=== PATIENT | female | born 1970 | race Caucasian/White ===

== ENCOUNTER 2016-07-27 07:50 | Emergency (ER) | payer OTHER, SELFPAY ==
[2016-07-27] MEDS ORDERED: KETOROLAC 30 MG/ML VIAL (J1885) As Ordered ONE (08:27)
--- NOTE | 2016-07-27 09:02 | EDDOCDS ---
Nurse's Notes [facility] Name: Roya Tristan Age: 46 yrs Sex: Female : 1970 Arrival Date: 07/27/2016 Time: 07:50 Bed I3 / M3 Private MD: Diagnosis: Low back pain-mechanical Presentation: 07/27 07:56 Presenting complaint: Patient states: Injured lower back lifting a resident at [facility]. mlb1 Acute neurological deficits are not present. Mechanism of Injury: Lifting. Adult Sepsis Screening: The patient does not have new or worsening altered mentation. Patient's respiratory rate is less than 22. Systolic blood pressure is greater than 100. Patient has a qSOFA score of 0- Negative Sepsis Screen. Suicide/Homicide risk assessment- the patient denies having any suicidal and/or homicidal ideations and does not present with any other emotional, behavioral or mental health complaints. Status: Patient is not a servicer travel trailers or dependent. Transition of care: patient was not received from another setting of care. 07:56 Acuity: LUIS Level 4 mlb1 07:56 Method Of Arrival: Walkin/Carried/Asstd mlb1 Triage Assessment: 07:59 General: Appears in no apparent distress, Behavior is appropriate for age, cooperative. mlb1 Pain: Location: low back area Pain currently is 4 out of 10 on a pain scale. HIV screening NA for this visit Offered previously. 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 none - PMHx: Crohn's; Fibromyalgia; Lupus; Rheumatoid Arthritis; - PSHx: right ankle X 3; Uterine Ablation; Hysterectomy; - Social history: Smoking status: Patient uses tobacco products, light tobacco smoker. No barriers to communication noted, The patient speaks fluent Maori, Speaks appropriately for age. - Family history: Not pertinent. - : The pt / caregiver states he / she is not on anticoagulants. Home medication list is obtained from the patient. - Exposure Risk Screening:: None identified. Screenin:11 Screening information is obtained from the patient. Fall risk: No risks identified. jmk Assistance ADL's: requires no assistance with activities of daily living. Abuse/DV Screen: The patient / caregiver reports he/she is: not in a situation that causes fear, pain or injury. Nutritional screening: No deficits noted. Advance Directives: Currently, there is a health care proxy, daughter, jesus tristan. There is an active DNR order There is a living will, There is an active Power of Marketing Co Op, tri tristan. home support is adequate. Assessment: 08:12 General: Appears uncomfortable. jmk 08:16 General: Appears Skin warm and dry. color satisfactory. indicates discomfort to mid low jmk back area that is non radiating. denies difficulty with control of bladder or bowels. 09:00 General: states pian has decreased to 2/10 , yet increased with movement. [facility] Vital Signs: 07:58 BP 117 / 71; Pulse 90; Resp 16; Temp 98.4(TE); Pulse Ox 97% on R/A; Weight 69.85 kg mlb1 (R); Height 5 ft. 3 in. (160.02 cm) (R); Pain 4/10; 08:53 BP 108 / 62; Pulse 76; Resp 16; Temp 99.1(O); Pulse Ox 97% ; Pain 2/10; jrd 07:58 Body Mass Index 27.28 (69.85 kg, 160.02 cm) [facility] Vitals: 07:58 Log In Time: July 27, 2016 at 07:46. [facility] ED Course: 07:52 Patient visited by Alejandro Trejo. mm15 07:52 Patient moved to Waiting mm15 07:56 Patient visited by Frankie Pop RN. mlb1 07:57 Triage Initiated mlb1 07:59 Patient visited by Frankie Pop RN. mlb1 07:59 Patient moved to I3 / mlb1 08:11 The patient / caregiver is instructed regarding the plan of care and ED course. jmk 08:16 No IV's were initiated during this patient's visit. No procedures done that require k assistance. 08:17 [facility]att [facility]C [facility] cc10 08:17 Kolby Olson MD is Attending Physician. cc10 08:17 Patient visited by Ronny Wyatt PA-C. cc10 08:17 Patient visited by Ronny Wyatt PA-C. cc10 08:23 [facility] is Referral Physician. cc10 08:54 Patient visited by Uche Molina PCA. jrd 08:54 [facility] Payment Agreement was scanned into [employer] and attached to record. mpb Administered Medications: 08:31 Drug: ketorolac 60 mg [ketorolac 30 mg/mL (1 mL) injection solution (2 mL)] Route: IM; k Site: right gluteus; Order Results: There are currently no results for this order. Outcome: 08:23 Discharge ordered by Provider. cc10 09:00 Discharge Assessment: Patient awake, alert and oriented x 3. No cognitive and/or k functional deficits noted. Patient verbalized understanding of disposition instructions. patient administered narcotics - no. The following High Risk Discharge criteria are identified: None. Condition: good. Discharge instructions given to patient, Instructed on discharge instructions, follow up and referral plans. medication usage, Demonstrated understanding of instructions, medications, Pt was receptive of discharge instructions/ teaching. Prescriptions given X 3. No special radiology studies were completed. Property :Personal belongings accompany Pt. 09:01 Patient left the ED. [facility] Signatures: Salvatore Fu,RN RN Frankie Hoff RN RN mlAlejandro Mendez mm15 Ronny Wyatt, PA-C PA-C cc10 Uche Molina PCA PCA jrFrankie Winters, Reg Reg mpb MTDD
--- NOTE | 2016-07-27 09:02 | EDDOCDS ---
Physician Documentation [facility] Name: Roya Krause Age: 46 yrs Sex: Female : 1970 Arrival Date: 07/27/2016 Time: 07:50 Bed I3 / M3 Private MD: Disposition: 07/27/16 08:23 Discharged to Home/Self Care. Impression: Low back pain - mechanical. - Condition is Stable. - Discharge Instructions: Back Pain, Adult. - Prescriptions for Naprosyn 500 mg Oral Tablet - take 1 tablet by ORAL route 2 times per day take with food; 30 tablet. [place] 5- 325 mg Oral Tablet - take 1 tablet by ORAL route every 6 hours As needed MDD: 4 tabs; 12 tablet. Cyclobenzaprine 10 mg Oral Tablet - take 1 tablet by ORAL route 3 times per day As needed; 15 tablet. - Work Release Form - 2 day, Medication Reconciliation, Local Pharmacy Hours form. - Follow up: Emergency Department; When: As needed; Reason: Worsening of conditions. Follow up: [facility]; When: Call to arrange an appointment; Reason: Wound/Symptom Recheck, Recheck today's complaints, Worsening of conditions, Continuance of care. - Problem is an acute exacerbation. - Symptoms are unchanged. Historical: - Allergies: Latex; PENICILLINS (Rash); SULFA (SULFONAMIDES) (Rash); - Home Meds: 1. none - PMHx: Crohn's; Fibromyalgia; Lupus; Rheumatoid Arthritis; - PSHx: right ankle X 3; Uterine Ablation; Hysterectomy; - Social history: Smoking status: Patient uses tobacco products, light tobacco smoker. No barriers to communication noted, The patient speaks fluent Belarusian, Speaks appropriately for age. - Family history: Not pertinent. - : The pt / caregiver states he / she is not on anticoagulants. Home medication list is obtained from the patient. - Exposure Risk Screening:: None identified. 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 3 in. (160.02 cm) (R); Pain 4/10; 08:53 BP 108 / 62; Pulse 76; Resp 16; Temp 99.1(O); Pulse Ox 97% ; Pain 2/10; jrd 07:58 Body Mass Index 27.28 (69.85 kg, 160.02 cm) mlb1 MDM: 08:22 ketorolac 60 mg IM once ordered. cc10 08:52 Financial registration complete. mpb 08:54 [facility] Payment Agreement was scanned into [employer] and attached to record. mpb Administered Medications: 08:31 Drug: ketorolac 60 mg [ketorolac 30 mg/mL (1 mL) injection solution (2 mL)] Route: IM; drake Site: right gluteus; Signatures: Salvatore Fu RN RN jmk Barney, Michael B, RN RN mlb1 Ronny Wyatt, PA-C PA-C cc10 Frankie Shay, Brent Reg mpb The chart was reviewed and I authenticate all verbal orders and agree with the evaluation and treatment provided.Attachments: 08:54 [facility] Payment Agreement mpb MTDD
--- NOTE | 2016-07-29 10:02 | EDDOCDS ---
Physician Documentation [facility] Name: Roya Krause Age: 46 yrs Sex: Female : 1970 Arrival Date: 07/27/2016 Time: 07:50 Bed I3 / M3 Private MD: Disposition: 07/27/16 08:23 Discharged to Home/Self Care. Impression: Low back pain - mechanical. - Condition is Stable. - Discharge Instructions: Back Pain, Adult. - Prescriptions for Naprosyn 500 mg Oral Tablet - take 1 tablet by ORAL route 2 times per day take with food; 30 tablet. [place] 5- 325 mg Oral Tablet - take 1 tablet by ORAL route every 6 hours As needed MDD: 4 tabs; 12 tablet. Cyclobenzaprine 10 mg Oral Tablet - take 1 tablet by ORAL route 3 times per day As needed; 15 tablet. - Work Release Form - 2 day, Medication Reconciliation, Local Pharmacy Hours form. - Follow up: Emergency Department; When: As needed; Reason: Worsening of conditions. Follow up: [facility]; When: Call to arrange an appointment; Reason: Wound/Symptom Recheck, Recheck today's complaints, Worsening of conditions, Continuance of care. - Problem is an acute exacerbation. - Symptoms are unchanged. Historical: - Allergies: Latex; PENICILLINS (Rash); SULFA (SULFONAMIDES) (Rash); - Home Meds: 1. none - PMHx: Crohn's; Fibromyalgia; Lupus; Rheumatoid Arthritis; - PSHx: right ankle X 3; Uterine Ablation; Hysterectomy; - Social history: Smoking status: Patient uses tobacco products, light tobacco smoker. No barriers to communication noted, The patient speaks fluent Mongolian, Speaks appropriately for age. - Family history: Not pertinent. - : The pt / caregiver states he / she is not on anticoagulants. Home medication list is obtained from the patient. - Exposure Risk Screening:: None identified. 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 3 in. (160.02 cm) (R); Pain 4/10; 08:53 BP 108 / 62; Pulse 76; Resp 16; Temp 99.1(O); Pulse Ox 97% ; Pain 2/10; jrd 07:58 Body Mass Index 27.28 (69.85 kg, 160.02 cm) mlb1 MDM: 08:22 ketorolac 60 mg IM once ordered. cc10 08:52 Financial registration complete. mpb 08:54 [facility] Payment Agreement was scanned into [employer] and attached to record. mpb 13:57 T-Sheet-- Draft Copy was scanned into [employer] and attached to record. gb Administered Medications: 08:31 Drug: ketorolac 60 mg [ketorolac 30 mg/mL (1 mL) injection solution (2 mL)] Route: IM; drake Site: right gluteus; Signatures: Salvatore Fu,RN RN jmk Jodi Alonso, Reg Reg gb Frankie Pop RN RN mlb1 Ronny Wyatt PA-C PABryan cc10 Frankie Shay, Reg Reg mpb The chart was reviewed and I authenticate all verbal orders and agree with the evaluation and treatment provided.Attachments: 08:54 [facility] Payment Agreement mpb 13:57 T-Sheet-- Draft Copy gb Chart Complete MTDD
--- NOTE | 2016-07-29 10:02 | EDDOCDS ---
Physician Documentation [facility] Name: Roya Krause Age: 46 yrs Sex: Female : 1970 Arrival Date: 07/27/2016 Time: 07:50 Bed I3 / M3 Private MD: Disposition: 07/27/16 08:23 Discharged to Home/Self Care. Impression: Low back pain - mechanical. - Condition is Stable. - Discharge Instructions: Back Pain, Adult. - Prescriptions for Naprosyn 500 mg Oral Tablet - take 1 tablet by ORAL route 2 times per day take with food; 30 tablet. [place] 5- 325 mg Oral Tablet - take 1 tablet by ORAL route every 6 hours As needed MDD: 4 tabs; 12 tablet. Cyclobenzaprine 10 mg Oral Tablet - take 1 tablet by ORAL route 3 times per day As needed; 15 tablet. - Work Release Form - 2 day, Medication Reconciliation, Local Pharmacy Hours form. - Follow up: Emergency Department; When: As needed; Reason: Worsening of conditions. Follow up: [facility]; When: Call to arrange an appointment; Reason: Wound/Symptom Recheck, Recheck today's complaints, Worsening of conditions, Continuance of care. - Problem is an acute exacerbation. - Symptoms are unchanged. Historical: - Allergies: Latex; PENICILLINS (Rash); SULFA (SULFONAMIDES) (Rash); - Home Meds: 1. none - PMHx: Crohn's; Fibromyalgia; Lupus; Rheumatoid Arthritis; - PSHx: right ankle X 3; Uterine Ablation; Hysterectomy; - Social history: Smoking status: Patient uses tobacco products, light tobacco smoker. No barriers to communication noted, The patient speaks fluent Turkmen, Speaks appropriately for age. - Family history: Not pertinent. - : The pt / caregiver states he / she is not on anticoagulants. Home medication list is obtained from the patient. - Exposure Risk Screening:: None identified. 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 3 in. (160.02 cm) (R); Pain 4/10; 08:53 BP 108 / 62; Pulse 76; Resp 16; Temp 99.1(O); Pulse Ox 97% ; Pain 2/10; jrd 07:58 Body Mass Index 27.28 (69.85 kg, 160.02 cm) mlb1 MDM: 08:22 ketorolac 60 mg IM once ordered. cc10 08:52 Financial registration complete. mpb 08:54 [facility] Payment Agreement was scanned into [employer] and attached to record. mpb 13:57 T-Sheet-- Draft Copy was scanned into [employer] and attached to record. gb Administered Medications: 08:31 Drug: ketorolac 60 mg [ketorolac 30 mg/mL (1 mL) injection solution (2 mL)] Route: IM; drake Site: right gluteus; Signatures: Salvatore Fu,RN RN jmk Jodi Alonso, Reg Reg gb Frankie Pop RN RN mlb1 Ronny Wyatt PA-C PABryan cc10 Frankie Shay, Reg Reg mpb The chart was reviewed and I authenticate all verbal orders and agree with the evaluation and treatment provided.Attachments: 08:54 [facility] Payment Agreement mpb 13:57 T-Sheet-- Draft Copy gb Chart Complete MTDD
--- NOTE | 2016-07-29 10:02 | EDDOCDS ---
Nurse's Notes [facility] Name: Roya Tristan Age: 46 yrs Sex: Female : 1970 Arrival Date: 07/27/2016 Time: 07:50 Bed I3 / M3 Private MD: Diagnosis: Low back pain-mechanical Presentation: 07/27 07:56 Presenting complaint: Patient states: Injured lower back lifting a resident at [facility]. mlb1 Acute neurological deficits are not present. Mechanism of Injury: Lifting. Adult Sepsis Screening: The patient does not have new or worsening altered mentation. Patient's respiratory rate is less than 22. Systolic blood pressure is greater than 100. Patient has a qSOFA score of 0- Negative Sepsis Screen. Suicide/Homicide risk assessment- the patient denies having any suicidal and/or homicidal ideations and does not present with any other emotional, behavioral or mental health complaints. 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 Transition of care: patient was not received from another setting of care. 07:56 Acuity: LUIS Level 4 mlb1 07:56 Method Of Arrival: Walkin/Carried/Asstd mlb1 Triage Assessment: 07:59 General: Appears in no apparent distress, Behavior is appropriate for age, cooperative. mlb1 Pain: Location: low back area Pain currently is 4 out of 10 on a pain scale. HIV screening NA for this visit Offered previously. 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 none - PMHx: Crohn's; Fibromyalgia; Lupus; Rheumatoid Arthritis; - PSHx: right ankle X 3; Uterine Ablation; Hysterectomy; - Social history: Smoking status: Patient uses tobacco products, light tobacco smoker. No barriers to communication noted, The patient speaks fluent Hebrew, Speaks appropriately for age. - Family history: Not pertinent. - : The pt / caregiver states he / she is not on anticoagulants. Home medication list is obtained from the patient. - Exposure Risk Screening:: None identified. Screenin:11 Screening information is obtained from the patient. Fall risk: No risks identified. jmk Assistance ADL's: requires no assistance with activities of daily living. Abuse/DV Screen: The patient / caregiver reports he/she is: not in a situation that causes fear, pain or injury. Nutritional screening: No deficits noted. Advance Directives: Currently, there is a health care proxy, daughter, jesus tristan. There is an active DNR order There is a living will, There is an active Power of Musical Instrument Supervisor, tri tristan. home support is adequate. Assessment: 08:12 General: Appears uncomfortable. jmk 08:16 General: Appears Skin warm and dry. color satisfactory. indicates discomfort to mid low jmk back area that is non radiating. denies difficulty with control of bladder or bowels. 09:00 General: states pian has decreased to 2/10 , yet increased with movement. [facility] Vital Signs: 07:58 BP 117 / 71; Pulse 90; Resp 16; Temp 98.4(TE); Pulse Ox 97% on R/A; Weight 69.85 kg mlb1 (R); Height 5 ft. 3 in. (160.02 cm) (R); Pain 4/10; 08:53 BP 108 / 62; Pulse 76; Resp 16; Temp 99.1(O); Pulse Ox 97% ; Pain 2/10; jrd 07:58 Body Mass Index 27.28 (69.85 kg, 160.02 cm) [facility] Vitals: 07:58 Log In Time: July 27, 2016 at 07:46. [facility] ED Course: 07:52 Patient visited by Alejandro Trejo. mm15 07:52 Patient moved to Waiting mm15 07:56 Patient visited by Frankie Pop RN. mlb1 07:57 Triage Initiated mlb1 07:59 Patient visited by Frankie Pop RN. mlb1 07:59 Patient moved to I3 / mlb1 08:11 The patient / caregiver is instructed regarding the plan of care and ED course. jmk 08:16 No IV's were initiated during this patient's visit. No procedures done that require k assistance. 08:17 [facility] cc10 08:17 Kolby Olson MD is Attending Physician. cc10 08:17 Patient visited by Ronny Wyatt PA-C. cc10 08:17 Patient visited by Ronny Wyatt PA-C. cc10 08:23 [facility] is Referral Physician. cc10 08:54 Patient visited by Uche Molina PCA. jrd 08:54 [facility] Payment Agreement was scanned into [employer] and attached to record. mpb 13:57 T-Sheet-- Draft Copy was scanned into [employer] and attached to record. gb Administered Medications: 08:31 Drug: ketorolac 60 mg [ketorolac 30 mg/mL (1 mL) injection solution (2 mL)] Route: IM; k Site: right gluteus; Order Results: There are currently no results for this order. Outcome: 08:23 Discharge ordered by Provider. cc10 09:00 Discharge Assessment: Patient awake, alert and oriented x 3. No cognitive and/or jmk functional deficits noted. Patient verbalized understanding of disposition instructions. patient administered narcotics - no. The following High Risk Discharge criteria are identified: None. Condition: good. Discharge instructions given to patient, Instructed on discharge instructions, follow up and referral plans. medication usage, Demonstrated understanding of instructions, medications, Pt was receptive of discharge instructions/ teaching. Prescriptions given X 3. No special radiology studies were completed. Property :Personal belongings accompany Pt. 09:01 Patient left the ED. [facility] Signatures: Salvatore Fu,RN RN Jodi Ohara, Reg Reg gb Frankie Pop RN RN mlAlejandro Mendez mm15 Ronny Wyatt, PABryan PA-Kriss cc10 Uche Molina PCA LETTER CARRIER jrd Frankie Shay, Reg Reg mpb Chart Complete MTDD
== END 2016-07-27 09:01 | disposition home or self-care (01) ==
LOC: M ED 07:50
DX: M54.5 Low back pain (principal); M79.7 Fibromyalgia; M06.9 Rheumatoid arthritis, unspecified; M32.9 Systemic lupus erythematosus, unspecified; K50.90 Crohn's disease, unspecified, without complications; F17.210 Nicotine dependence, cigarettes, uncomplicated; Z91.040 Latex allergy status; Z88.0 Allergy status to penicillin; Z88.2 Allergy status to sulfonamides
CPT/HCPCS: 96372; 99283; J1885